=== PATIENT | female | born 1950 | race Caucasian/White ===

== ENCOUNTER 2017-03-31 21:45 | Emergency (ER) | payer SELFPAY ==
[~2017-03-31] VITALS: Ht 170.2 cm; Wt 99.5 kg
[~2017-03-31 21:45] MED LIST: ASPI1TAB7 PO; B-COTAB41 PO; BIOT5000 PO; CALTTAB5 PO; DIPH50TA PO; FISH1200 PO; IBUP600T26 PO; LEVO.1 PO; LISI-515 PO; TAB-TAB PO; VITA100017 PO
[2017-03-31 21:58] VITALS: BP 113/79; PULSE 74; RESP 18; TEMP 98.4; O2SAT 98
[2017-03-31] MEDS ORDERED: ASPI-183 PO (21:58)
[2017-03-31] MEDS ORDERED: LEVO.1 PO (21:58)
[2017-03-31] MEDS ORDERED: AUGM875T3 PO (22:29)
--- NOTE | 2017-03-31 22:36 | PD ---
HPI Chief Complaint: ENT Complaint Time Seen by Provider: 22:13 Travel History International Travel<30 days: No Contact w/Intl Traveler<30days: No Traveled to known affect area: No History of Present Illness HPI This patient complains of injuries from a fall. She was drinking heavily. She lost her balance and fell face first into the ground. She struck her forehead and nose and mouth on the ground. No LOC. She has a swollen upper lip and had epistaxis. She has nasal pain as well. Some severity is moderate. Duration 1 hour. No alleviating factors. Symptoms exacerbated by alcohol consumption PFSH Past Medical History Cancer: No Cardiovascular Problems: No Diabetes: No Diminished Hearing: No Endocrine: Yes Gastrointestinal Disorders: No Genitourinary: No Hepatitis: Yes (HEP C) Hiatal Hernia: No Hypertension: Yes Immune Disorder: No Medical other: No Musculoskeletal: No Neurologic: No Psychiatric: No Reproductive: No Respiratory: No Thyroid Disease: Yes Tetanus Vaccination: Unknown Influenza Vaccination: Yes ?: Not Menopausal: Yes Past Surgical History Abdominal Surgery: Yes (CSECTION X3 ,INCISIONAL HERNIA) AICD: No Cardiac Surgery: No Section: Yes Ear Surgery: No Endocrine Surgery: No Eye Surgery: Yes (LASIK BILATERAL) Genitourinary Surgery: No Gynecologic Surgery: No (BEATA TUBAL) Joint Replacement: No Neurologic Surgery: No Oral Surgery: No Pacemaker: No Thoracic Surgery: No Tonsillectomy: Yes Other Surgery: Yes Social History Alcohol Use: Yes (social) Tobacco Use: Yes Substance Use: No Allergies-Medications (Allergen,Severity, Reaction): Coded Allergies: No Known Allergies (Unverified Adverse Reaction, Unknown, 03/31/17) Reported Meds & Prescriptions Reported Meds & Active Scripts Active Augmentin (Amoxicillin-Clavulanate) 875-125 Mg Tab 1 Tab PO BID Reported Aspirin 325 Mg Tab 325 Mg PO DAILY Synthroid (Levothyroxine Sodium) 100 Mcg Tab 100 Mcg PO DAILY Review of Systems General / Constitutional: No: Fever Eyes: No: Visual changes HENT: Positive: Headaches, Nosebleed Cardiovascular: No: Chest Pain or Discomfort Respiratory: No: Shortness of Breath Gastrointestinal: No: Abdominal Pain Genitourinary: No: Dysuria Musculoskeletal: Positive: Pain Skin: No Rash Neurologic: Positive: Headache, No: Weakness Psychiatric: No: Depression Endocrine: No: Polydipsia Hematologic/Lymphatic: No: Easy Bruising Physical Exam Narrative GENERAL: Well-nourished, well-developed patient in no apparent distress. SKIN: Focused skin assessment reveals no rash and nodules. Skin is Warm and dry. HEAD: Normocephalic. No forehead lacerations EYES: Pupils equal and round. No scleral icterus. No injection or drainage. ENT: Some dried blood in the nares. Nasal bridge is tender and swollen. Upper lip is swollen with both small puncture wound there from her tooth. Mucous membranes pink and moist. NECK: Trachea midline. No JVD. No midline tenderness CARDIOVASCULAR: Regular rate and rhythm. No murmur appreciated. RESPIRATORY: No accessory muscle use. Clear to auscultation. Breath sounds equal bilaterally. GASTROINTESTINAL: Abdomen soft, non-tender, nondistended. Hepatic and splenic margins not palpable. MUSCULOSKELETAL: No obvious deformities. No clubbing. No cyanosis. No edema. NEUROLOGICAL: Awake and alert. No obvious cranial nerve deficits. Motor grossly within normal limits. Normal speech. PSYCHIATRIC: Appropriate mood and affect; insight and judgment normal. Data Data Last Documented VS Vital Signs Date Time Temp Pulse Resp B/P (MAP) Pulse Ox O2 Delivery O2 Flow Rate FiO2 03/31/17 22:01 74 18 03/31/17 21:58 98.4 113/79 (90) 98 MDM Medical Decision Making Medical Screen Exam Complete: Yes Emergency Medical Condition: Yes Medical Record Reviewed: Yes Differential Diagnosis Facial bone fracture, concussion, intracranial hemorrhage Narrative Course I have reviewed the patient's electronic medical record. I've ordered imaging to include brain CT and facial bone CT and cervical spine CT History is challenging unreliable given her intoxication therefore I must error on the side of caution with imaging I wrote a prescription for Augmentin to help prevent infection setting into her upper lip If the CTs are negative she can go home Diagnosis Primary Impression: Contusion of face Qualified Codes: S00.83XA - Contusion of other part of head, initial encounter Additional Impressions: Head injury Qualified Codes: S09.90XA - Unspecified injury of head, initial encounter Nasal fracture Qualified Codes: S02.2XXA - Fracture of nasal bones, initial encounter for closed fracture Additional Instructions: The patient was advised to follow up with their physician and return if they worsen. Med/Other Pt SpecificInfo: Prescription(s) given Scripts Amoxicillin-Clavulanate (Augmentin) 875-125 Mg Tab 1 TAB PO BID for Infection, #10 TAB 0 Refills Prov: Mickey Oliveira MD 03/31/17 Disposition: 01 DISCHARGE HOME Condition: Stable Mickey Oliveira MD Mar 31, 2017 22:36
--- NOTE | 2017-03-31 23:23 | RADRPT ---
EXAM DATE/TIME: 03/31/2017 22:50 [facility] COMPARISON: No previous studies available for comparison. INDICATIONS : Trauma. Fall. RADIATION DOSE: 25.68 CTDIvol (mGy) MEDICAL HISTORY : Hypertension. SURGICAL HISTORY : Facelift. ENCOUNTER: Initial ACUITY: 1 day PAIN SCORE: 6/10 LOCATION: Bilateral facial TECHNIQUE: Volumetric scanning of the facial bones was performed. Using automated exposure control and adjustme nt of the mA and/or kV according to patient size, radiation dose was kept as low as reasonably achiev able to obtain optimal diagnostic quality images. DICOM format image data is available electronicall y for review and comparison. FINDINGS: ORBITS: The orbital and infraorbital osseous structures are intact. The retroconal structures have a normal configuration. No radiopaque foreign bodies are seen. NASAL BONE: The nasal bone and maxillary spine are intact ZYGOMATIC ARCHES: Symmetric without evidence of fracture. SINUSES: The maxillary, ethmoid and frontal sinuses are intact. No air-fluid levels seen. NASAL CAVITY: The nasal septum is intact and midline. The lacrimal ducts are intact. SOFT TISSUES: No radiopaque foreign bodies seen. No soft-tissue swelling is seen. INTRACRANIAL: No intracranial air seen. CRIBIFORM PLATE: Grossly intact. CONCLUSION: No acute disease. Marcelo Aguayo Jr., MD on March 31, 2017 at 23:20 Board Certified Radiologist. This report was verified electronically.
--- NOTE | 2017-03-31 23:24 | RADRPT ---
EXAM DATE/TIME: 03/31/2017 22:50 [facility] COMPARISON: No previous studies available for comparison. INDICATIONS : Trauma. Fall. RADIATION DOSE: 62.63 CTDIvol (mGy) ; Patient motion MEDICAL HISTORY : Hypertension. SURGICAL HISTORY : facelift. ENCOUNTER: Initial ACUITY: 1 day PAIN SCALE: 6/10 LOCATION: Bilateral cranial TECHNIQUE: Multiple contiguous axial images were obtained of the head. Using automated exposure control and adj ustment of the mA and/or kV according to patient size, radiation dose was kept as low as reasonably a chievable to obtain optimal diagnostic quality images. DICOM format image data is available electro nically for review and comparison. FINDINGS: CEREBRUM: The ventricles are normal for age. No evidence of midline shift, mass lesion, hemorrhage or acute in farction. No extra-axial fluid collections are seen. POSTERIOR FOSSA: The cerebellum and brainstem are intact. The 4th ventricle is midline. The cerebellopontine angle i s unremarkable. EXTRACRANIAL: The visualized portion of the orbits is intact. SKULL: The calvaria is intact. No evidence of skull fracture. CONCLUSION: No acute disease. Marcelo Aguayo Jr., MD on March 31, 2017 at 23:21 Board Certified Radiologist. This report was verified electronically.
--- NOTE | 2017-03-31 23:33 | RADRPT ---
EXAM DATE/TIME: 03/31/2017 22:50 [facility] COMPARISON: No previous studies available for comparison. INDICATIONS : Trauma. Fall. RADIATION DOSE: 25.26 CTDIvol (mGy) MEDICAL HISTORY : Hypertension. SURGICAL HISTORY : None. ENCOUNTER: Initial ACUITY: 1 day PAIN SCALE: 6/10 LOCATION: neck TECHNIQUE: Volumetric scanning of the cervical spine was performed. Multiplanar reconstructions in the sagittal, coronal and oblique axial planes were performed. Using automated exposure control and adjustment o f the mA and/or kV according to patient size, radiation dose was kept as low as reasonably achievable to obtain optimal diagnostic quality images. DICOM format image data is available electronically f or review and comparison. FINDINGS: VERTEBRAE: Normal vertebral body height. ALIGNMENT: No evidence of subluxation. C2-C3: The bony spinal canal is normal in size. No evidence of disc bulge or herniation. The neural forami na are bilaterally patent. C3-C4: The bony spinal canal is normal in size. No evidence of disc bulge or herniation. The neural forami na are bilaterally patent. C4-C5: The bony spinal canal is normal in size. No evidence of disc bulge or herniation. The neural forami na are bilaterally patent. C5-C6: There is disc space narrowing with a mild broad-based disc osteophyte complex. Central canal remains patent. Bony uncovertebral hypertrophy contributes to mild bilateral lateral recess narrowing and mil d bilateral neural foraminal narrowing. C6-C7: There is disc space narrowing with a mild broad-based disc osteophyte complex without central canal s tenosis. Mild narrowing of the left lateral recess and left neural foramen due to an bony uncovertebr al hypertrophy. The right are patent. C7-T1: The bony spinal canal is normal in size. No evidence of disc bulge or herniation. The neural forami na are bilaterally patent. CONCLUSION: 1. No fracture or dislocation. 2. Degenerative changes. Marcelo Aguayo Jr., MD on March 31, 2017 at 23:29 Board Certified Radiologist. This report was verified electronically.
[2017-03-31 23:48] VITALS: BP 116/68; PULSE 77; RESP 18; O2SAT 98
== END 2017-03-31 23:50 | disposition home or self-care (01) ==
LOC: PHED 21:45
DX: S00.83XA Contusion of other part of head, initial encounter (principal); S09.90XA Unspecified injury of head, initial encounter; S02.2XXA Fracture of nasal bones, initial encounter for closed fracture; I10 Essential (primary) hypertension; E07.9 Disorder of thyroid, unspecified; Z72.0 Tobacco use; Z86.19 Personal history of other infectious and parasitic diseases; W18.39XA Other fall on same level, initial encounter
CPT/HCPCS: 70450; 70486; 72125; 99285

== ENCOUNTER → 2017-05-27 | Day surgery (SDC) | payer MEDICARE, OTHER ==
[~2017-05-27] MED LIST changes: +ASPI-183 PO; -ASPI1TAB7 PO; +AUGM875T3 PO; -B-COTAB41 PO; +BENI40TA5 PO; -BIOT5000 PO; +BIOTCAP PO; +BUPIVACAINE HCL PF 0.5% 30 ML VIAL ONE; +CALC1TAB34 PO; -CALTTAB5 PO; +CARV12.52 PO; +DIPH25CA PO; -DIPH50TA PO; +IBUP1TAB5 PO; -IBUP600T26 PO; -LISI-515 PO; +NO ITAB PO; +PROPOFOL 200 MG/20 ML AMP IV ONE; -TAB-TAB PO; +TRIAMCINOLONE ACETONIDE 40 MG/ML VIAL I-ARTICULR ONE; -VITA100017 PO; +VITA500T83 PO; +VITATAB11 PO; +methylPREDNISolone ACETATE 40 MG/ML VIAL I-ARTICULR ONE
--- NOTE | 2017-05-27 13:17 | M5 ---
cc: Chang Plasencia MD, W. Ross 0 MD DATE OF CONSULT: 05/27/2017 PROCEDURE Fluoroscopically guided right sacral iliac joint injection. History and physical was completed and signed. Consent was signed. Procedure site was marked. Medications were listed and reconciled. Pain score was recorded. Allergies were noted. Time out was taken. Fluoroscopy time was recorded where applicable. Sedation was administered or directed by Dr. Plasencia. The patient was given oxygen. The patient was monitored by a registered nurse. Total procedure time was greater than 15 minutes. PROCEDURE IV was started, blood pressure cuff, pulse oximeter and EKG were applied. The patient was placed on the prone position on the Omkar table sedated with small amounts of Propofol, titrate to effect. Vital signs are monitored and remained stable throughout the procedure. The sacral area was prepped with alcohol and 10% betadine solution. Draped with sterile drapes. Fluoroscopy was used shooting from medial to lateral to clearly visualize the posterior joint line of the right sacral iliac joint. A 5 inch 22 gauge spinal needle was advanced into the joint under fluoroscopic guidance. There was negative aspiration for blood or any other type of fluid and the patient was given 2 ml 's of 0.50% Marcaine, 20 mg of Depo-Medrol and 20 mg of Kenalog. Following the procedure the patient was taken to the recovery room with stable vital signs neurologically intact. She will be evaluated immediately and with follow up to determine if she has a subjective decrease in her usual pain and a corresponding objective increase in her functional capabilities. MD BRITTANIE Bustamante/RANJIT , 10:49 AM , 01:08 PM
== END | disposition home or self-care (01) ==
LOC: PHSDC 09:07
PROVIDERS: ATTEND Pain Medicine Interventional Pain Medicine
DX: M54.5 Low back pain (principal); M53.3 Sacrococcygeal disorders, not elsewhere classified
CPT/HCPCS: 99152; G0260; J1030; J3301; 27096

== ENCOUNTER → 2017-06-17 | Day surgery (SDC) | payer MEDICARE, OTHER ==
[~2017-06-17] MED LIST changes: -AUGM875T3 PO; -BUPIVACAINE HCL PF 0.5% 30 ML VIAL ONE; +BUPIVACAINE HCL PF 0.75% 30 ML VIAL ONE; -methylPREDNISolone ACETATE 40 MG/ML VIAL I-ARTICULR ONE
--- NOTE | 2017-06-17 10:21 | M6 ---
cc: Chang Plasencia MD 06/17/2017 PROCEDURE: Fluoroscopically-guided injection, right lumbar facet joints (right L3-L4, L4-L5 and L5-S1 facet joints). History and physical was completed and signed. Consent was signed. Procedure site was marked. Medications were listed and reconciled. Pain score was recorded. Allergies were noted. Time out was taken. Fluoroscopy time was recorded where applicable. Sedation was administered or directed by Dr. Plasencia. The patient was given oxygen. The patient was monitored by a registered nurse. Total procedure time was greater than 15 minutes. IV was started. Blood pressure cuff, pulse oximeter and EKG were applied. The patient was placed in the prone position on a Omkar table, sedated with small amounts of Propofol titrated to effect. Vital signs were monitored and remained stable throughout the procedure. Lumbar area was prepped with alcohol and 10% Betadine solution and draped with sterile drapes. Fluoroscopy was used in a Scottie dog view to clearly visualize the right L3-L4, L4-L5 and L5-S1 facet joints. Separate sterile 3-1/2 inch, 25-gauge spinal needles were advanced into these joints under fluoroscopic guidance. There was negative aspiration for blood or any other type of fluid, and, at each location, the patient was given 1 mL of Marcaine 0.75%, which contained 10 mg of Kenalog. Following the procedure, the patient was taken to the recovery room with stable vital signs, neurologically intact. She will be evaluated immediately and with followup to determine if she has a subjective decrease in her usual pain and the corresponding objective increase in her functional capabilities. MD BRITTANIE Bustamante/RICH , 10:08 AM , 10:20 AM
== END | disposition home or self-care (01) ==
LOC: PHSDC 08:38
PROVIDERS: ATTEND Pain Medicine Interventional Pain Medicine
DX: M54.5 Low back pain (principal)
CPT/HCPCS: 64493; 64494; 64495; 99152; J3301

== ENCOUNTER → 2017-08-28 | Day surgery (SDC) | payer MEDICARE, OTHER ==
[~2017-08-28] MED LIST changes: -BUPIVACAINE HCL PF 0.75% 30 ML VIAL ONE; +LIDOCAINE HCL 1% 30 ML VIAL INFIL ONE; +MEPERIDINE HCL 50 MG/ML VIAL IV ONE; +MIDAZOLAM HCL 2 MG/2 ML VIAL IV ONE; +SODIUM CHLORIDE 0.9% 10 ML VIAL ONE; -TRIAMCINOLONE ACETONIDE 40 MG/ML VIAL I-ARTICULR ONE; +methylPREDNISolone ACETATE 40 MG/ML VIAL I-ARTICULR ONE
--- NOTE | 2017-08-28 08:17 | M6 ---
cc: Chang Plasencia MD DATE: 08/28/2017 DATE OF PROCEDURE: 08/28/2017 PROCEDURE PERFORMED: Radiofrequency rhizotomy multiple right lumbar facet joints (right L3-L4, L4-L5, and L5-S1 facet joints). History and physical was completed and signed. Consent was signed. Procedure site was marked. Medications were listed and reconciled. Pain score was recorded. Allergies were noted. Time out was taken. Fluoroscopy time was recorded where applicable. Sedation was administered or directed by Dr. Plasencia. The patient was given oxygen. The patient was monitored by a registered nurse. Total procedure time was greater than 15 minutes. Three levels are being done because imaging studies show arthritis in all lumbar facet joints and because each facet joint is innervated by the medial branches from the nerves above and below that particular joint. The patient reported 50% or greater pain relief from previous diagnostic facet joint blocks done with fluoroscopic guidance. PROCEDURE: An IV was started, blood pressure cuff, pulse oximeter and EKG were applied. The patient was placed in the prone position on a Omkar table, sedated with small amounts of Versed and fentanyl and propofol titrated to effect. Vital signs were monitored and remained stable throughout the procedure. The lumbar area was scrubbed with antimicrobial solution, prepped with 10% Betadine solution, draped with sterile drapes. Fluoroscopy was used in a slightly oblique angle (Leighton dog view) to clearly visualize the target areas which were the cephalad most medial angle of the transverse processes as they met the pedicle in the anatomical location of the medial branch of the posterior primary ramus on the right side at L3-L4, L4-L5 and L5-S1 levels and the angle of the right sacral ala. The skin was infiltrated with 1% Xylocaine using a 27 gauge needle. An insulated 20 gauge radiofrequency needle with a 10-mm curved tip was advanced to the above-mentioned target areas. Fluoroscopy was used to confirm the needle was properly placed and not near the nerve root. At no time did the patient report any paresthesias down the lower extremity. Once properly positioned thermal lesions took place at 80 degrees Centigrade x 100 seconds at each location. Then, a small amount of Depo-Medrol was injected at each location for a total of 40 mg of Depo-Medrol. Following this the patient was taken to the recovery room with stable vital signs, neurologically intact. W. MD BRITTANIE Barriga/KRISTA , 07:58 AM , 08:15 AM
== END | disposition home or self-care (01) ==
LOC: PHSDC 06:29
PROVIDERS: ATTEND Pain Medicine Interventional Pain Medicine
DX: M54.5 Low back pain (principal); I10 Essential (primary) hypertension; F17.200 Nicotine dependence, unspecified, uncomplicated
CPT/HCPCS: 64635; 64636; 99152; 99153; J1030; J2175; J2250

== ENCOUNTER 2017-10-26 13:51 | Observation (INO) ==
[2017-10-26] MEDS ORDERED: Sod Chloride 0.9% Inj 1,000 ML IV.SIG ONE ×2 (14:15→17:12)
[2017-10-26] MEDS ORDERED: Pantoprazole Inj 40 MG Vial IV.PUSH ONE (14:15)
--- NOTE | 2017-10-26 14:18 | ED ---
HPI General Chief complaint: Nausea/Vomiting/Diarrhea Stated complaint: Vomiting/diarrhea/been on a weight loss injectable Time Seen by Provider: 10/26/17 14:15 Source: patient Mode of arrival: ambulatory Limitations: no limitations History of Present Illness HPI Narrative: 67-year-old female patient with history of hypothyroidism hypertension, has recently been started on Trulicity about 3 weeks ago for weight loss, presents to the ER today because she states that for the last few weeks she has been having nausea, vomiting, not keeping much down, and today started having diarrhea, had red blood in the stools, and then had a syncopal episode. She currently complains of nausea, feeling lightheaded. She denies any abdominal pains, chest pains, fevers, or other symptoms. She denies any bad food exposure, sick contacts, recent travel. She denies any previous history of GI bleeding. Related Data Home Medications Medication Instructions Recorded Confirmed ascorbic acid (vitamin C) [Vitamin 2 tab PO DAILY 10/02/17 10/26/17 C] aspirin 2 tab PO DAILY 10/02/17 10/26/17 biotin 1 cap PO BID 10/02/17 10/26/17 calcium carbonate-vit D3-min 1 tab PO BID 10/02/17 10/26/17 carvedilol 12.5 mg PO BID 10/02/17 10/26/17 diphenhydramine HCl 50 mg PO HS PRN 10/02/17 10/26/17 ibuprofen 400 mg PO Q8HR PRN 10/02/17 10/26/17 levothyroxine 100 mcg PO DAILY 10/02/17 10/26/17 liothyronine 5 mcg PO DAILY 10/02/17 10/26/17 multivitamin [Daily Multi-Vitamin] 1 tab PO DAILY 10/02/17 10/26/17 olmesartan-hydrochlorothiazide 1 tab PO DAILY 10/02/17 10/26/17 vitamin B complex 1 tab PO BID 10/02/17 10/26/17 fish oil-dha-epa 1 cap PO BID 10/26/17 10/26/17 Allergies Allergy/AdvReac Type Severity Reaction Status Date / Time No Known Allergies Allergy Unknown none Uncoded 10/26/17 14:02 Review of Systems Except as stated in HPI: all other systems reviewed are negative PMFSH History History Provided By: Patient Medical History Medical History HTN (hypertension) (Acute) Hypothyroid (Acute) Social History Social History Substance History: No History of Abuse Smoking Status: Never smoker How Often Do You Have a Drink Containing Alcohol: Never Recent Travel in [facility] within the Last 8 Weeks: No Recent Out of Country Travel within the Last 8 Weeks: No Exam Narrative Exam Narrative: GENERAL: Well-developed elderly female patient currently and moderate distress. Awake and oriented 3. SKIN: Focused skin assessment warm/dry. HEAD: Atraumatic. Normocephalic. EYES: Pupils equal and round. No scleral icterus. No injection or drainage. ENT: No nasal bleeding or discharge. Mucous membranes pink and moist. NECK: Trachea midline. No JVD. CARDIOVASCULAR: Regular rate and rhythm. No murmur appreciated. RESPIRATORY: No accessory muscle use. Clear to auscultation. Breath sounds equal bilaterally. GASTROINTESTINAL: Abdomen soft, non-tender, nondistended. Hepatic and splenic margins not palpable. RECTAL EXAM: No masses or tenderness, stool is reddish brown. Hemoccult positive. MUSCULOSKELETAL: No obvious deformities. No clubbing. No cyanosis. No edema. NEUROLOGICAL: Awake and alert. No obvious cranial nerve deficits. Motor grossly within normal limits. Normal speech. PSYCHIATRIC: Appropriate mood and affect; insight and judgment normal. Procedures Hemaprompt Stool Procedural Steps Taken: specimen placed in appropriate test area, developer placed on specimen and control areas and controls appropriately positive and negative Hemaprompt Stool Result: positive Course Hospital Course: Patient has Hemoccult positive stools. Patient was given IV fluids, Protonix in the ER. Lab work evaluation shows severe hyponatremia and hypokalemia. IV fluids and potassium chloride IV was given in the ER. At this point, plan would be to admit her for further treatment. Case was discussed with Dr. Morelos for admission. Initial Documented Vital Signs Temperature 97.9 F 10/26/17 13:53 Pulse Rate 91 H 10/26/17 13:53 Respiratory Rate 16 10/26/17 13:53 Blood Pressure 109/65 10/26/17 13:53 Pulse Oximetry 97 10/26/17 13:53 Last Documented Vital Signs Temperature 97.9 F 10/26/17 13:53 Pulse Rate 77 10/26/17 15:54 Respiratory Rate 20 10/26/17 15:54 Blood Pressure 110/78 10/26/17 15:54 Pulse Oximetry 95 10/26/17 15:54 Medical Decision Making Differential Diagnosis Differential Diagnosis: GI bleed versus dehydration versus electrolyte abnormalities versus pancreatitis versus medication side effect Lab Data Result diagrams: 10/26/17 14:30 10/26/17 14:30 Lab Results 10/26/17 10/26/17 10/26/17 Range/Units 14:30 14:30 14:30 CBC w Diff Auto diff final WBC 6.7 (4.0-11.0) th/mm3 RBC 4.55 (4.00-5.30) mil/mm3 Hgb 15.6 H (11.6-15.3) gm/dL Hct 46.0 (35.0-46.0) % MCV 101.1 H (80.0-100.0) fL MCH 34.3 H (27.0-34.0) pg MCHC 33.9 (32.0-36.0) % RDW 11.8 (11.6-17.2) % Plt Count 207 (150-450) th/mm3 MPV 7.6 (7.0-11.0) fL Neut % (Auto) 80.7 H (16.0-70.0) % Lymph % (Auto) 13.9 (9.0-44.0) % [place] % (Auto) 4.3 (0.0-8.0) % Eos % (Auto) 0.6 (0.0-4.0) % Baso % (Auto) 0.5 (0.0-2.0) % Neut # (Auto) 5.5 (1.8-7.7) th/mm3 Lymph # (Auto) 0.9 L (1.0-4.8) th/mm3 [place] # (Auto) 0.3 (0.0-0.9) th/mm3 Eos # (Auto) 0.0 (0.0-0.4) th/mm3 Baso # (Auto) 0.0 (0.0-0.2) th/mm3 WBC Differential . Differential Comment . PT 10.4 (9.8-11.6) sec INR 1.0 Ratio APTT 24.3 (24.3-30.1) sec Sodium 121 L* (136-145) meq/L Potassium 3.0 L (3.5-5.1) meq/L Chloride 83 L (98-107) meq/L Carbon Dioxide 29.3 (21.0-32.0) meq/L Anion Gap 9 (5-15) meq/L BUN 10 (7-18) mg/dL Creatinine 0.78 (0.50-1.00) mg/dL Estimated GFR 74 L (>89) mL/min Random Glucose 122 H (74-106) mg/dL Calcium 9.6 (8.5-10.1) mg/dL Total Bilirubin 0.5 (0.2-1.0) mg/dL AST 14 L (15-37) U/L ALT 29 (10-53) U/L Alkaline Phosphatase 47 (45-117) U/L Total Protein 7.8 (6.4-8.2) g/dL Albumin 4.0 (3.4-5.0) g/dL Lipase (73-393) U/L Blood Type Blood Type Recheck Antibody Screen 10/26/17 10/26/17 Range/Units 14:30 14:30 CBC w Diff WBC (4.0-11.0) th/mm3 RBC (4.00-5.30) mil/mm3 Hgb (11.6-15.3) gm/dL Hct (35.0-46.0) % MCV (80.0-100.0) fL MCH (27.0-34.0) pg MCHC (32.0-36.0) % RDW (11.6-17.2) % Plt Count (150-450) th/mm3 MPV (7.0-11.0) fL Neut % (Auto) (16.0-70.0) % Lymph % (Auto) (9.0-44.0) % [place] % (Auto) (0.0-8.0) % Eos % (Auto) (0.0-4.0) % Baso % (Auto) (0.0-2.0) % Neut # (Auto) (1.8-7.7) th/mm3 Lymph # (Auto) (1.0-4.8) th/mm3 [place] # (Auto) (0.0-0.9) th/mm3 Eos # (Auto) (0.0-0.4) th/mm3 Baso # (Auto) (0.0-0.2) th/mm3 WBC Differential Differential Comment PT (9.8-11.6) sec INR Ratio APTT (24.3-30.1) sec Sodium (136-145) meq/L Potassium (3.5-5.1) meq/L Chloride (98-107) meq/L Carbon Dioxide (21.0-32.0) meq/L Anion Gap (5-15) meq/L BUN (7-18) mg/dL Creatinine (0.50-1.00) mg/dL Estimated GFR (>89) mL/min Random Glucose (74-106) mg/dL Calcium (8.5-10.1) mg/dL Total Bilirubin (0.2-1.0) mg/dL AST (15-37) U/L ALT (10-53) U/L Alkaline Phosphatase (45-117) U/L Total Protein (6.4-8.2) g/dL Albumin (3.4-5.0) g/dL Lipase 181 (73-393) U/L Blood Type A Positive Blood Type Recheck Required Antibody Screen Negative Discharge Plan Discharge Disposition Patient Disposition: 30 Still Patient Discharge Condition Condition: Good Discharge Details Anticipated Discharge Date: 10/26/17 Diagnosis: Acute hyponatremia, Hypokalemia, GI bleed Physicians Team ED Provider: Linda Wong Rxs /Orders / Referrals /Forms Prescriptions: No Action multivitamin [Daily Multi-Vitamin] Tablet 1 tab PO DAILY RF: 0 carvedilol 12.5 mg Tablet 12.5 mg PO BID RF: 0 biotin 5 mg Capsule 1 cap PO BID RF: 0 aspirin 325 mg Tablet 2 tab PO DAILY RF: 0 diphenhydramine HCl 25 mg Capsule 50 mg PO HS PRN (Reason: Allergy Symptoms) RF: 0 ibuprofen 400 mg Tablet 400 mg PO Q8HR PRN (Reason: Pain) RF: 0 vitamin B complex Tablet 1 tab PO BID RF: 0 ascorbic acid (vitamin C) [Vitamin C] 500 mg Tablet Extended Release 2 tab PO DAILY RF: 0 olmesartan-hydrochlorothiazide 40-12.5 mg Tablet 1 tab PO DAILY RF: 0 calcium carbonate-vit D3-min 600 mg calcium- 200 unit Tablet 1 tab PO BID RF: 0 levothyroxine 100 mcg Capsule 100 mcg PO DAILY RF: 0 liothyronine 5 mcg Tablet 5 mcg PO DAILY RF: 0 fish oil-dha-epa 1,200-144-216 mg Capsule 1 cap PO BID RF: 0 Discharge Interventions Interventions: Vital Signs Last Done: 10/26/17 15:54 Status ED Status: With Doctor
[2017-10-26 14:50] LABS: Activated Partial Thrombo Time 24.3 sec (24.3-30.1); Prothrombin Time 10.4 sec (9.8-11.6)
[2017-10-26 14:51] LABS: Baso % (Auto) 0.5 % (0.0-2.0); Eos % (Auto) 0.6 % (0.0-4.0); Hemoglobin 15.6 gm/dL (11.6-15.3); Lymph # (Auto) 0.9 th/mm3 (1.0-4.8); Lymph % (Auto) 13.9 % (9.0-44.0); Mean Corpuscular HGB Conc 33.9 % (32.0-36.0); Mean Corpuscular Hemoglobin 34.3 pg (27.0-34.0); Mean Corpuscular Volume 101.1 fL (80.0-100.0); Mean Platelet Volume 7.6 fL (7.0-11.0); Mono # (Auto) 0.3 th/mm3 (0.0-0.9); Mono % (Auto) 4.3 % (0.0-8.0); Neut # (Auto) 5.5 th/mm3 (1.8-7.7); Neut % (Auto) 80.7 % (16.0-70.0); Platelet Count 207 th/mm3 (150-450); Red Blood Count 4.55 mil/mm3 (4.00-5.30); Red Cell Distribution Width 11.8 % (11.6-17.2); White Blood Count 6.7 th/mm3 (4.0-11.0)
[2017-10-26 15:03] LABS: Alanine Aminotransferase 29 U/L (10-53); Alkaline Phosphatase 47 U/L (45-117); Anion Gap 9 meq/L (5-15); Aspartate Aminotransferase 14 U/L (15-37); Blood Urea Nitrogen 10 mg/dL (7-18); Calcium 9.6 mg/dL (8.5-10.1); Carbon Dioxide 29.3 meq/L (21.0-32.0); Chloride 83 meq/L (98-107); Glomerular Filtration Rate 74 mL/min (>89); Glucose,Random 122 mg/dL (74-106); Total Protein 7.8 g/dL (6.4-8.2)
[2017-10-26 15:05] LABS: Sodium 121 meq/L (136-145)
[2017-10-26] MEDS ORDERED: Temazepam 15 MG Capsule PO PRN (17:07)
[2017-10-26] MEDS ORDERED: Acetaminophen 325 MG Tablet PO PRN (17:07)
--- NOTE | 2017-10-26 17:19 | P.HPIM ---
History of Present Illness Primary Care Physician: Nathan Llanos Chief Complaint: Dizzy with abdominal pain and vomiting History of Present Illness: Patient is a 67-year-old female with a history of hypothyroidism and hypertension. Patient complains of 3 weeks of loose stools with bright red mucoid stools and associated nausea and dizziness. She had abdominal cramping and felt so lightheaded that she finally came to the hospital. Recently she was started on Trulicity for weight loss. She does not have diabetes but does follow-up with placing judge for her thyroid management. She was also increased on levothyroxine over the last 3 weeks. She had recently started to gain a lot of weight and was quite concerned. Her pain had also increased she takes aspirin 325 mg 1-2 tablets a day twice a day and ibuprofen 400 mg frequently for headaches. She has never had a intestinal bleed but does have a history of esophageal spasm and dilation and [facility] She comes to the hospital here with a blood pressure of 84/54 and severe hyponatremia at 121. Patient is admitted for severe dehydration. She has moist skin but dry because membranes. Patient will benefit from IV hydration and observation for further examination. - Diagnosis (1) Hypotension (2) Acute hyponatremia (3) Hypokalemia (4) GI bleed Inpatient Certification: I certify that the inpatient services were ordered in accordance with Medicare regulations governing the order. This includes certification that hospital inpatient services are reasonable and necessary and in the case of services not specified as inpatient-only under 42 CFR 419.22(n), that they are appropriately provided as inpatient services in accordance to with the 2-midnight benchmark under 43 CFR 412.3(e) Review of Systems All other systems reviewed negative except as stated in HPI Gastrointestinal: Reports change in bowel habits, Reports cramping, Reports nausea, Reports vomiting PMFSH - History History Provided By: Patient - Medical History Medical History: Medical History (Last Updated 10/26/17 @ 17:17 by Joselyn Morelos MD) Chronic pain VTE (venous thromboembolism) HTN (hypertension) Hypothyroid - Tobacco History Smoking Status: Former smoker (Quit smoking after college) - Alcohol History How Often Do You Have a Drink Containing Alcohol: 2 to 4 times a month - Substance Use History Substance History: No History of Abuse - Travel History Recent Travel in the [place] Within the Last 8 Weeks: No Recent Travel Out of the Country Within the Last 8 Weeks: No - Immunization History Tetanus Immunization: Unsure Hx Influenza Vaccine This Season: No Medications and Allergies Active Medications: Active Medications Sodium Chloride (Ns Flush) 2 ml IV.FLUSH PRN PRN PRN Reason: FLUSH AFTER USING IV ACCESS Allergies Allergy/AdvReac Type Severity Reaction Status Date / Time No Known Allergies Allergy Unknown none Uncoded 10/26/17 14:02 Home Medications Medication Instructions Recorded Confirmed Type ascorbic acid (vitamin C) [Vitamin 2 tab PO DAILY 10/02/17 10/26/17 History C] aspirin 2 tab PO DAILY 10/02/17 10/26/17 History biotin 1 cap PO BID 10/02/17 10/26/17 History calcium carbonate-vit D3-min 1 tab PO BID 10/02/17 10/26/17 History carvedilol 12.5 mg PO BID 10/02/17 10/26/17 History diphenhydramine HCl 50 mg PO HS PRN 10/02/17 10/26/17 History ibuprofen 400 mg PO Q8HR PRN 10/02/17 10/26/17 History levothyroxine 100 mcg PO DAILY 10/02/17 10/26/17 History liothyronine 5 mcg PO DAILY 10/02/17 10/26/17 History multivitamin [Daily Multi-Vitamin] 1 tab PO DAILY 10/02/17 10/26/17 History olmesartan-hydrochlorothiazide 1 tab PO DAILY 10/02/17 10/26/17 History vitamin B complex 1 tab PO BID 10/02/17 10/26/17 History fish oil-dha-epa 1 cap PO BID 10/26/17 10/26/17 History Exam Vital signs: Vital Signs 10/26/17 13:53 10/26/17 14:28 10/26/17 15:54 Temperature 97.9 F Pulse Rate 91 H 77 Respiratory Rate 16 20 Blood Pressure 109/65 110/78 Pulse Oximetry 97 96 95 10/26/17 17:09 Temperature 96.8 F L Pulse Rate 85 Respiratory Rate 20 Blood Pressure 84/54 L Pulse Oximetry 98 Intake & Output 10/25/17 10/26/17 10/26/17 18:59 06:59 18:59 Weight 95.3 kg Other: Weight On Admission 95.3 kg Narrative: GENERAL: Patient calm resting and complaining of abdominal cramping and lightheaded with movement SKIN: Warm and dry. No rashes or ecchymotic injuries EYES: Pupils equal and round. No scleral icterus. No injection or drainage. ENT: External ear exam normal. No acute nasal bleeding or discharge. Mucous membranes pink and moist. CARDIOVASCULAR: Regular rate and rhythm. No murmurs gallops or rubs appreciated RESPIRATORY: Good air flow and effort without accessory muscle use. Clear to auscultation. Breath sounds equal bilaterally. GASTROINTESTINAL: Abdomen soft, non-tender, nondistended. Hepatic and splenic margins not palpable. MUSCULOSKELETAL: Extremities without clubbing, cyanosis, or edema. No obvious deformities. NEUROLOGICAL: Awake and alert. No obvious cranial nerve deficits. Motor grossly within normal limits. Five out of 5 muscle strength in the arms and legs. Normal speech. Results - Labs CBC & Chem 7: 10/26/17 14:30 10/26/17 14:30 Labs: Short CBC 10/26/17 Range/Units 14:30 WBC 6.7 (4.0-11.0) th/mm3 Hgb 15.6 H (11.6-15.3) gm/dL Hct 46.0 (35.0-46.0) % Plt Count 207 (150-450) th/mm3 BMP 10/26/17 14:30 Sodium 121 L* Potassium 3.0 L Chloride 83 L Carbon Dioxide 29.3 BUN 10 Creatinine 0.78 Calcium 9.6 Liver Function 10/26/17 Range/Units 14:30 Total Bilirubin 0.5 (0.2-1.0) mg/dL AST 14 L (15-37) U/L ALT 29 (10-53) U/L Alkaline Phosphatase 47 (45-117) U/L Albumin 4.0 (3.4-5.0) g/dL Caprini VTE Risk Assessment Caprini VTE Risk Assessment: Moderate/High Risk (score >= 2) VTE Pharmacological Exception Reason: High risk for bleeding Caprini Risk Assessment Model: Point Value = 1 Point Value = 2 Point Value = 3 Point Value = 5 Age 41-60 Minor surgery BMI > 25 kg/m2 Swollen legs Varicose veins or History of unexplained or recurrent spontaneous Oral contraceptives or hormone replacement Sepsis (< 1 month) Serious lung disease, including pneumonia (< 1 month) Abnormal pulmonary function Acute myocardial infarction Congestive heart failure (< 1 month) History of inflammatory bowel disease Medical patient at bed rest Age 61-74 Arthroscopic surgery Major open surgery (> 45 min) Laparoscopic surgery (> 45 min) Malignancy Confined to bed (> 72 hours) Immobilizing plaster cast Central venous access Age >= 75 History of VTE Family history of VTE Factor V Leiden Prothrombin [id number] Lupus anticoagulant Anticardiolipin antibodies Elevated serum homocysteine Heparin-induced thrombocytopenia Other congenital or acquired thrombophilia Stroke (< 1 month) Elective arthroplasty Hip, pelvis, or leg fracture Acute spinal cord injury (< 1 month) Prophylaxis Regimen: Total Risk Factor Score Risk Level Prophylaxis Regimen 0-1 Low Early ambulation 2 Moderate Order ONE of the following: *Sequential Compression Device (SCD) *Heparin 5000 units SQ BID 3-4 Higher Order ONE of the following medications: *Heparin 5000 units SQ TID *Enoxaparin/Lovenox 40 mg SQ daily (WT < 150 kg, CrCl > 30 mL/min) *Enoxaparin/Lovenox 30 mg SQ daily (WT < 150 kg, CrCl > 10-29 mL/min) *Enoxaparin/Lovenox 30 mg SQ BID (WT < 150 kg, CrCl > 30 mL/min) AND/OR *Sequential Compression Device (SCD) 5 or more Highest Order ONE of the following medications: *Heparin 5000 units SQ TID (Preferred with Epidurals) *Enoxaparin/Lovenox 40 mg SQ daily (WT < 150 kg, CrCl > 30 mL/min) *Enoxaparin/Lovenox 30 mg SQ daily (WT < 150 kg, CrCl > 10-29 mL/min) *Enoxaparin/Lovenox 30 mg SQ BID (WT < 150 kg, CrCl > 30 mL/min) AND *Sequential Compression Device (SCD) Assessment and Plan - Assessment (1) Hypotension Code(s): I95.9 - Hypotension, unspecified Status: Acute Plan: Cont aggressive IV hydration and follow up electrolytes. We will hold home blood pressure medications the patient was still taking these despite her difficulty keeping food down and diarrhea. Follow-up stool studies Transfuse if needed (2) Acute hyponatremia Code(s): E87.1 - Hypo-osmolality and hyponatremia Status: Acute Plan: Likely due to dehydration as patient is quite hypovolemic Continue to check electrolytes after adequate hydration (3) Hypokalemia Code(s): E87.6 - Hypokalemia Status: Acute (4) GI bleed Code(s): K92.2 - Gastrointestinal hemorrhage, unspecified Status: Acute Plan: Likely due to colitis versus medication side effect. Follow-up hemoglobin CT abdomen and pelvis is pending No recent abdominal complaints prior to this medication and no recent exposure to antibiotics. 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
[2017-10-26] MEDS ORDERED: Diatrizoate Meglum/Diatrizoate Sod Liq 9 ML UDC PO ONE ×3 (19:36→20:31)
[2017-10-26] MEDS: Potassium Chlor 20 mEq Premix 20 MEQ/100 ML PIGGYBACK IV.SIG SCH ×2 (20:43→22:15)
--- NOTE | 2017-10-26 23:37 | CT ---
EXAM DATE: 10/26/2017 11:19 PM EDT AGE/SEX: 67 years / Female INDICATIONS: Vomiting, diarrhea for three weeks. Gastrointestinal bleed, hypernatremia, hypokalemia. Hepatitis C. CLINICAL DATA: This is the patient's initial encounter. Patient reports that signs and symptoms have been present for 3 weeks and indicates a pain score of 2/10. MEDICAL/SURGICAL HISTORY: . Hypertension, chronic pain, hypothyroid, venous thromboembolism. . ORAL CONTRAST: Prescribed oral contrast ingested. RADIATION DOSE: 18.21 CTDI (mGy) COMPARISON: [facility] – [place], [place] NEEDLE BIOPSY LIVER, 06/28/2015. . TECHNIQUE: Multiple contiguous axial images were obtained through the abdomen and pelvis following b olus infusion of 80 ml Omnipaque 350 (iohexol) nonionic water-soluble contrast as a single exam dos e. Prescribed oral contrast ingested. Using automated exposure control and adjustment of the mA and/ or kV according to patient size, radiation dose was kept as low as reasonably achievable to obtain op timal diagnostic quality images. DICOM format image data is available electronically for review and comparison. FINDINGS: Lower Lungs: The visualized lower lungs are clear. Liver: The liver has a homogeneous density without space-occupying lesion. There is no dilation of th e biliary tree. The gallbladder is contracted but otherwise unremarkable. There is mild hepatic steat osis. Spleen: Homogeneous density without enlargement. Pancreas: Unremarkable without mass or calcification. Kidneys: Normal in size and shape. No evidence of mass or hydronephrosis. Adrenal Glands: Unremarkable. Aorta: The aorta and proximal iliac vessels are grossly unremarkable without aneurysmal dilation. Bowel/Mesentery: The bowel loops are grossly unremarkable. The cecum and sigmoid colon have a normal configuration. There is a normal appendix. Abdominal Wall: Intact. Retroperitoneum: No evidence of adenopathy in the retrocrural, para-aortic, or deep pelvic regions. Bladder: Contours are smooth. Reproductive Organs: There is an enhancing masslike area in the right side of the uterus measuring u p to 2.9 x 2.4 cm. Inguinal: The inguinal region is unremarkable without evidence of adenopathy. Bony Structures: Unremarkable. CONCLUSION: 1. Unremarkable bowel gas pattern with no inflammatory change or obstruction. There is a normal appe ndix. 2. Mild hepatic steatosis. 3. Contracted gallbladder which is otherwise unremarkable. Electronically signed by: Ashok Sauceda MD 10/26/2017 11:36 PM EDT
[2017-10-27] MEDS: Levothyroxine 100 MCG Tablet PO SCH (05:51)
[2017-10-27 06:25] LABS: Baso % (Auto) 0.1 % (0.0-2.0); Eos # (Auto) 0.1 th/mm3 (0.0-0.4); Eos % (Auto) 0.7 % (0.0-4.0); Hematocrit 37.4 % (35.0-46.0); Hemoglobin 13.3 gm/dL (11.6-15.3); Lymph # (Auto) 1.9 th/mm3 (1.0-4.8); Lymph % (Auto) 19.6 % (9.0-44.0); Mean Corpuscular HGB Conc 35.4 % (32.0-36.0); Mean Corpuscular Hemoglobin 35.6 pg (27.0-34.0); Mean Corpuscular Volume 100.5 fL (80.0-100.0); Mean Platelet Volume 7.8 fL (7.0-11.0); Mono # (Auto) 0.7 th/mm3 (0.0-0.9); Mono % (Auto) 6.7 % (0.0-8.0); Neut # (Auto) 7.2 th/mm3 (1.8-7.7); Neut % (Auto) 72.9 % (16.0-70.0); Platelet Count 158 th/mm3 (150-450); Red Blood Count 3.72 mil/mm3 (4.00-5.30); Red Cell Distribution Width 12.1 % (11.6-17.2); White Blood Count 9.9 th/mm3 (4.0-11.0)
[2017-10-27 06:42] LABS: Anion Gap 5 meq/L (5-15); Blood Urea Nitrogen 6 mg/dL (7-18); Calcium 8.5 mg/dL (8.5-10.1); Carbon Dioxide 29.3 meq/L (21.0-32.0); Chloride 98 meq/L (98-107); Glomerular Filtration Rate Greater Than 89 mL/min (>89); Glucose,Random 105 mg/dL (74-106); Potassium 3.5 meq/L (3.5-5.1); Sodium 132 meq/L (136-145)
[2017-10-27] MEDS ORDERED: Sod Chloride 0.9% Inj 1,000 ML IV.SIG ONE (10:55)
--- NOTE | 2017-10-27 11:00 | P.PNIM ---
Subjective Interval history: Patient seen and evaluated today in follow-up for hypotension secondary to the diarrhea. Overall improved. Amatory. Tolerating diet. Low and blood pressure with some symptoms of dizziness but much improved from admission. Hyponatremia is resolved Physical Exam Vital signs: Vital Signs 10/26/17 13:53 10/26/17 14:28 10/26/17 15:54 Temperature 97.9 F Pulse Rate 91 H 77 Respiratory Rate 16 20 Blood Pressure 109/65 110/78 Pulse Oximetry 97 96 95 10/26/17 17:09 10/26/17 17:59 10/26/17 20:00 Temperature 96.8 F L 96.2 F L Pulse Rate 85 78 Respiratory Rate 20 16 Blood Pressure 84/54 L 83/58 L Pulse Oximetry 98 96 98 10/26/17 20:15 10/27/17 00:00 10/27/17 04:00 Temperature 97.0 F L 97.9 F Pulse Rate 81 76 Respiratory Rate 16 16 Blood Pressure 123/73 110/64 Pulse Oximetry 98 97 97 10/27/17 08:00 Temperature 98.4 F Pulse Rate 84 Respiratory Rate 18 Blood Pressure 101/64 Pulse Oximetry 95 Intake & Output 10/26/17 10/27/17 10/27/17 18:59 06:59 18:59 Intake Total 3000 / 3000 1200 / 1200 Balance 3000 / 3000 1200 / 1200 Weight 95.3 kg Intake: IV 3000 / 3000 1200 / 1200 LR 1000 mL Inj 1,000 ML @ 100 1000 / 1000 mls/hr IV.CONT .Q10H JAY Rx#: [id number] NS + KCl 20 mEq Inj 1,000 ML @ 1000 / 1000 125 mls/hr IV.CONT .Q8H JAY Rx# :[id number] KCl 20 mEq Premix Inj 20 meq In 200 / 200 100 ml @ 50 mls/hr IV.SIG Q2H JAY Rx#:[id number] NS Inj 1,000 ML @ Wide Open IV. 1999 / 1999 SIG BOLUS ONE Rx#:[id number] Other: Date of Last Bowel Movement 10/26/17 Weight On Admission 95.3 kg Narrative: GENERAL: Well-nourished, well-developed patient. Complaining of some dizziness but ambulatory in the room SKIN: Warm and dry. HEAD: Normocephalic. EYES: No scleral icterus. No injection or drainage. NECK: Supple, trachea midline. No JVD or lymphadenopathy. CARDIOVASCULAR: Regular rate and rhythm without murmurs, gallops, or rubs. RESPIRATORY: Breath sounds equal bilaterally. No accessory muscle use. GASTROINTESTINAL: Abdomen soft, non-tender, nondistended. MUSCULOSKELETAL: No cyanosis, or edema. BACK: Nontender without obvious deformity. No CVA tenderness. NEUROLOGICAL: Awake and alert. Cranial nerves II through XII intact. Motor and sensory grossly within normal limits. Five out of 5 muscle strength in all muscle groups. Normal speech. Results - Labs CBC & Chem 7: 10/27/17 05:53 10/27/17 05:53 Laboratory Results - last 24 hr 10/26/17 10/26/17 10/26/17 14:30 14:30 14:30 CBC w Diff Auto diff final WBC 6.7 RBC 4.55 Hgb 15.6 H Hct 46.0 MCV 101.1 H MCH 34.3 H MCHC 33.9 RDW 11.8 Plt Count 207 MPV 7.6 Neut % (Auto) 80.7 H Lymph % (Auto) 13.9 [place] % (Auto) 4.3 Eos % (Auto) 0.6 Baso % (Auto) 0.5 Neut # (Auto) 5.5 Lymph # (Auto) 0.9 L [place] # (Auto) 0.3 Eos # (Auto) 0.0 Baso # (Auto) 0.0 WBC Differential . Differential Comment . PT 10.4 INR 1.0 APTT 24.3 Sodium 121 L* Potassium 3.0 L Chloride 83 L Carbon Dioxide 29.3 Anion Gap 9 BUN 10 Creatinine 0.78 Estimated GFR 74 L Random Glucose 122 H Calcium 9.6 Magnesium Total Bilirubin 0.5 AST 14 L ALT 29 Alkaline Phosphatase 47 Total Protein 7.8 Albumin 4.0 Lipase Blood Type Blood Type Recheck Antibody Screen 10/26/17 10/26/17 10/26/17 14:30 14:30 14:30 CBC w Diff WBC RBC Hgb Hct MCV MCH MCHC RDW Plt Count MPV Neut % (Auto) Lymph % (Auto) [place] % (Auto) Eos % (Auto) Baso % (Auto) Neut # (Auto) Lymph # (Auto) [place] # (Auto) Eos # (Auto) Baso # (Auto) WBC Differential Differential Comment PT INR APTT Sodium Potassium Chloride Carbon Dioxide Anion Gap BUN Creatinine Estimated GFR Random Glucose Calcium Magnesium 1.4 L Total Bilirubin AST ALT Alkaline Phosphatase Total Protein Albumin Lipase 181 Blood Type A Positive Blood Type Recheck Required Antibody Screen Negative 10/27/17 10/27/17 05:53 05:53 CBC w Diff Auto diff final WBC 9.9 RBC 3.72 L Hgb 13.3 D Hct 37.4 MCV 100.5 H MCH 35.6 H MCHC 35.4 RDW 12.1 Plt Count 158 MPV 7.8 Neut % (Auto) 72.9 H Lymph % (Auto) 19.6 [place] % (Auto) 6.7 Eos % (Auto) 0.7 Baso % (Auto) 0.1 Neut # (Auto) 7.2 Lymph # (Auto) 1.9 [place] # (Auto) 0.7 Eos # (Auto) 0.1 Baso # (Auto) 0.0 WBC Differential . Differential Comment . PT INR APTT Sodium 132 L D Potassium 3.5 Chloride 98 D Carbon Dioxide 29.3 Anion Gap 5 BUN 6 L Creatinine 0.62 Estimated GFR Greater than 89 Random Glucose 105 Calcium 8.5 D Magnesium Total Bilirubin AST ALT Alkaline Phosphatase Total Protein Albumin Lipase Blood Type Blood Type Recheck Antibody Screen - Imaging Impressions Abdomen/Pelvis CT 10/26/17 00:00 CONCLUSION: 1. Unremarkable bowel gas pattern with no inflammatory change or obstruction. There is a normal appendix. 2. Mild hepatic steatosis. 3. Contracted gallbladder which is otherwise unremarkable. Assessment and Plan - Assessment (1) Hypotension Code(s): I95.9 - Hypotension, unspecified Status: Acute Plan: Cont aggressive IV hydration and follow up electrolytes. We will hold home blood pressure medications the patient was still taking these despite her difficulty keeping food down and diarrhea. Improved (2) Acute hyponatremia Code(s): E87.1 - Hypo-osmolality and hyponatremia Status: Acute Plan: Resolved after IV hydration (3) Hypokalemia Code(s): E87.6 - Hypokalemia Status: Acute (4) GI bleed Code(s): K92.2 - Gastrointestinal hemorrhage, unspecified Status: Acute Plan: Likely due to colitis versus medication side effect. Follow-up hemoglobin CT abdomen and pelvis is negative for acute intra-abdominal findings Follow-up GI as an outpatient No recent abdominal complaints prior to this medication and no recent exposure to antibiotics. She is a retired [employer] has not been in healthcare system otherwise in quite some time - Plan Discharge Planning: Likely in a.m.
[2017-10-27] MEDS: Liothyronine 5 MCG Tablet PO SCH (11:23)
[2017-10-28 05:16] VITALS: O2SAT 98
[2017-10-28] MEDS: Levothyroxine 100 MCG Tablet PO SCH (06:08)
[2017-10-28] MEDS: Liothyronine 5 MCG Tablet PO SCH (09:33)
[2017-10-28 09:50] VITALS: BP 125/74; RESP 18; TEMP 97.7
--- NOTE | 2017-10-28 10:38 | P.DS ---
Date of admission: 10/26/17 16:20 Primary care physician: Nathan Llanos Brief History from admission: Patient is a 67-year-old female with a history of hypothyroidism and hypertension. Patient complains of 3 weeks of loose stools with bright red mucoid stools and associated nausea and dizziness. She had abdominal cramping and felt so lightheaded that she finally came to the hospital. Recently she was started on Trulicity for weight loss. She does not have diabetes but does follow-up with weapons mechanic for her thyroid management. She was also increased on levothyroxine over the last 3 weeks. She had recently started to gain a lot of weight and was quite concerned. Her pain had also increased she takes aspirin 325 mg 1-2 tablets a day twice a day and ibuprofen 400 mg frequently for headaches. She has never had a intestinal bleed but does have a history of esophageal spasm and dilation and [facility] She comes to the hospital here with a blood pressure of 84/54 and severe hyponatremia at 121. Patient is admitted for severe dehydration. She has moist skin but dry because membranes. Patient will benefit from IV hydration and observation for further examination. DS: Diagnosis - Discharge Diagnosis (1) Hypotension Status: Acute (2) Acute hyponatremia Status: Acute (3) Hypokalemia Status: Acute (4) GI bleed Status: Acute DS: Summary Hospital Course: Patient was seen and treated for severe hypotension and dehydration. Likely due to trulicity which was started for weight loss. Resolution occurred with aggressive hydration and holding her bp meds. - Time Spent with Patient Total time spent providing and/or coordinating discharge services: Less than 30 minutes - Quality: VTE Deep Vein Thrombosis/Pulmonary Embolism Present on Admission: No Exam Vital signs: Vital Signs 10/27/17 12:00 10/27/17 15:46 10/27/17 20:00 Temperature 96.7 F L 97.4 F L 97.5 F L Pulse Rate 89 89 83 Respiratory Rate 18 18 16 Blood Pressure 104/67 104/72 111/74 Pulse Oximetry 97 96 96 10/27/17 20:03 10/28/17 00:00 10/28/17 04:00 Temperature 97.6 F 97.4 F L Pulse Rate 84 80 Respiratory Rate 16 16 Blood Pressure 116/73 107/70 Pulse Oximetry 96 97 98 10/28/17 08:00 Temperature 97.7 F Pulse Rate 88 Respiratory Rate 18 Blood Pressure 125/74 Pulse Oximetry 98 Intake & Output 10/27/17 10/28/17 10/28/17 18:59 06:59 18:59 Intake Total 1740 / 1740 900 / 900 Balance 1740 / 1740 900 / 900 Weight 95.3 kg Intake: IV 1000 / 1000 900 / 900 LR 1000 mL Inj 1,000 ML @ 100 1000 / 1000 900 / 900 mls/hr IV.CONT .Q10H JAY Rx#: [id number] Oral 740 / 740 Other: # Voids 3 1 Date of Last Bowel Movement 10/26/17 10/27/17 # Bowel Movements 1 Results Procedures completed during hospitalization: none - Impressions ITS Impressions Abdomen/Pelvis CT 10/26/17 00:00 CONCLUSION: 1. Unremarkable bowel gas pattern with no inflammatory change or obstruction. There is a normal appendix. 2. Mild hepatic steatosis. 3. Contracted gallbladder which is otherwise unremarkable. Discharge Plan - Discharge Disposition Patient Disposition: 01 Discharge Home - Discharge Condition Condition: Good - Discharge Order Discharge Orders: Discharge Order (Routine); Ordered 10/28/17 Ordered By: Joselyn Morelos - Discharge Details Anticipated Discharge Date: 10/28/17 - Physicians Team Attending Provider: Joselyn Morelos
[2017-10-28 14:30] VITALS: PULSE 92
== END 2017-10-28 12:33 | disposition home or self-care (01) ==
LOC: PH3 13:51 → PHED 13:51 → PHEDA 16:19 → INTOOBSV 16:19 → PH3 16:45
PROVIDERS: ADMIT Hospitalist; ATTEND Hospitalist
DX: E03.9 Hypothyroidism, unspecified; R10.9 Unspecified abdominal pain; R55 Syncope and collapse; Z87.891 Personal history of nicotine dependence; G89.29 Other chronic pain; R11.2 Nausea with vomiting, unspecified; K92.2 Gastrointestinal hemorrhage, unspecified; E87.6 Hypokalemia; K76.0 Fatty (change of) liver, not elsewhere classified; I95.9 Hypotension, unspecified; E87.1 Hypo-osmolality and hyponatremia; I10 Essential (primary) hypertension; E86.0 Dehydration; Z79.899 Other long term (current) drug therapy; K92.1 Melena; R63.4 Abnormal weight loss